=== PATIENT | male | born 1985 | race Two or more races ===

== ENCOUNTER → 2020-05-26 | Outpatient (CLI) | payer OTHER ==
[2020-05-26 09:30] LABS: Basophils # (auto) 0.1 10 ^3/uL (0-0.2); Basophils % (auto) 1.2 % (0.0-2.0); Eosinophils # (auto) 0.2 10 ^3/uL (0-0.8); Eosinophils % (auto) 2.7 % (0.0-7.0); Hematocrit 44.3 % (41.0-53.0); Hemoglobin 15.2 g/dL (13.5-17.5); Lymphocytes # (auto) 2.7 10 ^3/uL (0.4-5.4); Lymphocytes % (auto) 30.4 % (10.0-50.0); Mean Corpuscular Hemoglobin 30.7 pg (28.0-32.0); Mean Corpuscular Hgb Conc. 34.2 g/dL (32.0-36.0); Mean Corpuscular Volume 89.9 fL (80.0-100.0); Monocytes # (auto) 0.7 10 ^3/uL (0-1.3); Monocytes % (auto) 7.2 % (0.0-12.0); Neutrophils # (auto) 5.3 10 ^3/uL (1.6-8.6); Neutrophils % (auto) 58.5 % (37.0-80.0); Platelet Count (auto) 405 10^3/uL (140-450); Red Blood Cells 4.93 10^6/uL (4.5-5.90); Red Cell Distribution Width 13.2 % (11.8-14.3)
[2020-05-26 10:24] LABS: Albumin 3.8 g/dL (3.4-5.0); Potassium 3.1 mmol/L (3.5-5.1)
[2020-05-26 10:29] LABS: BUN/Creatinine Ratio 14.6; Bilirubin, Total 0.6 mg/dL (0.2-1.0)
== END | disposition home or self-care (01) ==
LOC: LAB 09:09
PROVIDERS: ATTEND Physician Assistant
DX: S27.30 Unspecified injury of lung (principal); K41.90 Unilateral femoral hernia, without obstruction or gangrene, not specified as recurrent; B35.4 Tinea corporis; J45.20 Mild intermittent asthma, uncomplicated; X58.XXXS Exposure to other specified factors, sequela
CPT/HCPCS: 36415; 80053; 80061; 85025

== ENCOUNTER → 2021-06-03 | Outpatient (CLI) | payer OTHER ==
[2021-06-03 11:11] LABS: Basophils # (auto) 0 10 ^3/uL (0-0.2); Basophils % (auto) 0.6 % (0.0-2.0); Eosinophils # (auto) 1.1 10 ^3/uL (0-0.8); Hematocrit 45.2 % (41.0-53.0); Hemoglobin 15.3 g/dL (13.5-17.5); Lymphocytes # (auto) 2.3 10 ^3/uL (0.4-5.4); Lymphocytes % (auto) 27.6 % (10.0-50.0); Mean Corpuscular Hemoglobin 30.6 pg (28.0-32.0); Mean Corpuscular Hgb Conc. 33.8 g/dL (32.0-36.0); Mean Corpuscular Volume 90.6 fL (80.0-100.0); Monocytes # (auto) 0.4 10 ^3/uL (0-1.3); Monocytes % (auto) 4.9 % (0.0-12.0); Neutrophils # (auto) 4.5 10 ^3/uL (1.6-8.6); Neutrophils % (auto) 53.9 % (37.0-80.0); Nucleated Red Blood Cells % 0.1 %; Red Blood Cells 4.98 10^6/uL (4.5-5.90); Red Cell Distribution Width 12.8 % (11.8-14.3); White Blood Cell 8.3 10^3/uL (4.4-10.8)
[2021-06-03 11:44] LABS: Potassium 3.6 mmol/L (3.5-5.1)
[2021-06-03 12:17] LABS: Albumin 3.5 g/dL (3.4-5.0); BUN/Creatinine Ratio 19.5; Bilirubin, Total 0.5 mg/dL (0.2-1.0); Calcium 8.9 mg/dL (8.5-10.1)
== END | disposition home or self-care (01) ==
LOC: LAB 10:10
PROVIDERS: ATTEND Nurse Practitioner Family
DX: R53.83 Other fatigue (principal); E78.5 Hyperlipidemia, unspecified; J45.20 Mild intermittent asthma, uncomplicated; E66.9 Obesity, unspecified
CPT/HCPCS: 36415; 80053; 80061; 82043; 83036; 84443; 85025

== ENCOUNTER → 2023-03-11 | Outpatient (CLI) | payer OTHER ==
[2023-03-11 10:04] LABS: Basophils # (auto) 0.1 10 ^3/uL (0-0.2); Basophils % (auto) 1.1 % (0.0-2.0); Eosinophils # (auto) 0.4 10 ^3/uL (0-0.8); Eosinophils % (auto) 4.6 % (0.0-7.0); Hematocrit 44.8 % (41.0-53.0); Hemoglobin 14.9 g/dL (13.5-17.5); Lymphocytes % (auto) 32.7 % (10.0-50.0); Mean Corpuscular Hemoglobin 29.7 pg (28.0-32.0); Mean Corpuscular Hgb Conc. 33.2 g/dL (32.0-36.0); Mean Corpuscular Volume 89.3 fL (80.0-100.0); Monocytes # (auto) 0.6 10 ^3/uL (0-1.3); Monocytes % (auto) 6.8 % (0.0-12.0); Neutrophils % (auto) 54.8 % (37.0-80.0); Nucleated Red Blood Cells % 0.2 %; Red Blood Cells 5.01 10^6/uL (4.5-5.90); Red Cell Distribution Width 13.6 % (11.8-14.3); White Blood Cell 9.2 10^3/uL (4.4-10.8)
[2023-03-11 10:46] LABS: Albumin 3.6 g/dL (3.4-5.0); Calcium 8.3 mg/dL (8.5-10.1); Potassium 4.1 mmol/L (3.5-5.1)
[2023-03-11 10:54] LABS: BUN/Creatinine Ratio 23.8 (10.0-20.0); Bilirubin, Total 0.5 mg/dL (0.2-1.0); Total Protein 7.9 g/dL (6.4-8.2)
== END | disposition home or self-care (01) ==
LOC: LAB 09:38
PROVIDERS: ATTEND Internal Medicine
DX: Z00.00 Encounter for general adult medical examination without abnormal findings (principal); E66.9 Obesity, unspecified
CPT/HCPCS: 36415; 80053; 80061; 83036; 84443; 85025

== ENCOUNTER → 2024-03-16 | Outpatient (CLI) | payer BC ==
[2024-03-16 10:55] LABS: Basophils # (auto) 0.1 10 ^3/uL (0-0.2); Basophils % (auto) 1.2 % (0.0-2.0); Eosinophils # (auto) 0.3 10 ^3/uL (0-0.8); Eosinophils % (auto) 3.5 % (0.0-7.0); Hematocrit 43.3 % (41.0-53.0); Hemoglobin 14.9 g/dL (13.5-17.5); Lymphocytes % (auto) 33.1 % (10.0-50.0); Mean Corpuscular Hemoglobin 30.7 pg (28.0-32.0); Mean Corpuscular Hgb Conc. 34.3 g/dL (32.0-36.0); Mean Corpuscular Volume 89.4 fL (80.0-100.0); Monocytes # (auto) 0.6 10 ^3/uL (0-1.3); Monocytes % (auto) 6.6 % (0.0-12.0); Neutrophils % (auto) 55.6 % (37.0-80.0); Nucleated Red Blood Cells % 0.1 %; Red Blood Cells 4.84 10^6/uL (4.5-5.90); Red Cell Distribution Width 12.9 % (11.8-14.3); White Blood Cell 9.1 10^3/uL (4.4-10.8)
[2024-03-16 11:35] LABS: Alanine Aminotransferase 18 U/L (7-40); Albumin 4.3 g/dL (3.2-4.8); Alkaline Phosphatase 91 U/L (46-116); Anion Gap 5 (5-15); Aspartate Aminotransferase 11 U/L (13-40); BUN/Creatinine Ratio 14.3 (10.0-20.0); Bilirubin, Total 0.6 mg/dL (0.2-1.0); Blood Urea Nitrogen 12 mg/dL (9-23); Calcium 9.5 mg/dL (8.7-10.4); Carbon Dioxide 29 mmol/L (20-30); Chloride 105 mmol/L (98-107); Cholesterol 165 mg/dL (< 200); Glucose 102 mg/dL (74-106); HDL Cholesterol 43 mg/dL (40-59); LDL Cholesterol 118 mg/dL (< 100); Sodium 139 mmol/L (136-145); Total Protein 7.6 g/dL (5.7-8.2); Triglycerides 73 mg/dL (< 150)
== END | disposition home or self-care (01) ==
LOC: LAB 10:18
PROVIDERS: ATTEND Internal Medicine
DX: R53.83 Other fatigue (principal); E78.5 Hyperlipidemia, unspecified; F32.A Depression, unspecified
CPT/HCPCS: 36415; 80053; 80061; 83036; 84403; 84443; 85025